=== PATIENT | male | born 1995 | race Caucasian/White ===

== ENCOUNTER 2018-08-17 22:08 | Emergency (ER) | payer OTHER ==
[~2018-08-17] VITALS: Ht 188 cm; Wt 68.0 kg
[~2018-08-17 22:08] MED LIST: ACET325 PO; ASCO500 PO; CEPH500 PO; CRUTCH4 USE; DIPH50 PO; DOXY100 PO; DOXYCYCLINE; L LYSINE; MELA3 PO; NAPR220 PO; NYQUIL; POTCHL10ER PO; PRED10 PO; SULTRIDS PO; TRAM50 PO
[2018-08-17] MEDS ORDERED: CEPH500 PO (23:51)
== END 2018-08-18 | disposition home or self-care (01) ==
LOC: ER 22:08
DX: S61.411A Laceration without foreign body of right hand, initial encounter (principal); S00.03XA Contusion of scalp, initial encounter; W01.198A Fall on same level from slipping, tripping and stumbling with subsequent striking against other object, initial encounter; Z88.0 Allergy status to penicillin; Z88.5 Allergy status to narcotic agent; Z91.030 Bee allergy status; F17.210 Nicotine dependence, cigarettes, uncomplicated
CPT/HCPCS: 12001; 73130; 99283-25

== ENCOUNTER → 2020-09-25 | Outpatient (CLI) | payer OTHER ==
[2020-09-27 04:08] LABS: CHLAMYDIA TRACHOMATIS, NAA Negative (Negative)
== END | disposition home or self-care (01) ==
LOC: LAB SHORT 13:44 → LAB 13:44
PROVIDERS: Physician Assistant Surgical
DX: N41.0 Acute prostatitis (principal)
CPT/HCPCS: 87086; 87491; 87591

== ENCOUNTER → 2024-06-30 | Outpatient (CLI) | payer OTHER | END | disposition home or self-care (01) | LOC: LAB 17:42 → LAB SHORT 17:42 | DX: R30.0 Dysuria (principal) | CPT/HCPCS: 87086 ==

== ENCOUNTER → 2024-07-01 | Outpatient (CLI) | payer OTHER ==
[2024-07-01 15:47] LABS: Chlamydia Trachomatis Urine NOT DETECTED (NOT DETECT); Neisseria Gonorrhoea Urine NOT DETECTED (NOT DETECT)
== END ==
LOC: LAB SHORT 06:00 → LAB 06:00
PROVIDERS: Chiropractor
DX: R30.0 Dysuria (principal)
CPT/HCPCS: 87491; 87591

== ENCOUNTER 2025-01-17 20:05 | Emergency (ER) | payer OTHER ==
[~2025-01-17] VITALS: Ht 188 cm; Wt 99.8 kg
[2025-01-17 20:14] VITALS: BP 162/104
[2025-01-17] MEDS ORDERED: Fluorescein Sod 1MG Opth Strips LEFTEYE ONE (20:20)
[2025-01-17] MEDS ORDERED: Tetracaine HCl/Pf 0.5% Opth Soln 4 ml LEFTEYE ONE (20:25)
[2025-01-17] MEDS ORDERED: Erythromycin 0.5% Opth Oint 1 gm LEFTEYE ONE (21:10)
== END 2025-01-17 21:35 | disposition home or self-care (01) ==
LOC: ER 20:05
DX: S05.02XA Injury of conjunctiva and corneal abrasion without foreign body, left eye, initial encounter (principal); F17.210 Nicotine dependence, cigarettes, uncomplicated; Z88.0 Allergy status to penicillin; Z88.5 Allergy status to narcotic agent; Z91.030 Bee allergy status; W44.9XXA Unspecified foreign body entering into or through a natural orifice, initial encounter
CPT/HCPCS: 99283; A9270